=== PATIENT | male | born 1950 | race African-American/Black ===

== ENCOUNTER → 2017-01-04 | Outpatient (CLI) | payer MEDICARE ==
[~2017-01-04] MED LIST: /AMLO25TA NG; /FENT25PA TD; /FENT50PA TD; /HCTZ25TA PO; /ONDA4TA IV; /PANT40TA OR; /PANT40TA PO; /QUET10TA OR; /TAMS4CA OR; /TAMS4CA PO; ABIL10TA; ABILIFY; ACET50TA PO; ALLOPOW4 OR; AMLO10TA OR; AMLO10TA2 PO; AMLO5TAB OR; AMLO5TAB2 PO; AMOX500T PO; ATEN25TA; ATENPOW; AVAP300T PO; AVOD0.5C PO; Atarax; Atarax PO; BABY81CH; BUDE300T; CIPR500T89 PO; CLON0.5T PO; CLON1TAB PO; CLON3PA TOP; CLOP75TA2 PO; Cogentin PO; DESI100T PO; DICLOFENAC PO; ENAL20TA PO; ENAL5TA PO; FERR325T OR; GABA300C2 PO; GLUC500T PO; HALD5INJ2 IJ; HEPA50VL SC; HYDR20IN2 PO; HYDR25TA PO; HYDR50TA7 OR; HYDR50TA7 PO; Haldol PO; IMDU60TA PO; INSULANT SC; INSULIN; INSULIN LANTUS; INSULIN LANTUS SC; INVE6TAB3; ISOVUE-370 76% 100ML VIAL (Q9967) As Ordered ONE; KLON1TAB OR; KLON1TAB PO; LABE10TAB PO; LABE20TAB PO; LEVO50TA4 PO; LISINOPRIL/HCTZ; LISIPOW PO; LOPR50TA PO; LYRI75CA; MACR100C3 PO; MAGN500T2; MAGN500T2 OR; METF1000 PO; METH10TA2 PO; MIRT15TA3 PO; MULTTAB4 PO; NALO4SY IV; NEUR300C; NICO21DI4 TD; NITR2OI EXT; OXYCONTIN PO; PANT40TA2 PO; PERC10TA9 PO; PERC5TAB8 OR; PLAV75TA2 PO; PROAAER IN; PROTPAK PO; RISP1TAB3 PO; RISP2TAB12 OR; RISP4TAB33 PO; SERO200T PO; SERO400T PO; SERO400T3 PO; SOMA; SYNT50TA PO; TRAMADOL PO; TRAZ100T2 PO; TYLE325T5 PO; UROX10TA10 PO; VASO20TA PO; VITA500T OR; Vibramycin PO; [UNRECOGNIZED DRUG - CODE] PO; [UNRECOGNIZED DRUG - OTHER]; [UNRECOGNIZED DRUG - OTHER] GT; [UNRECOGNIZED DRUG - OTHER] PO; effexor xr PO; novolog insulin
--- NOTE | 2017-01-04 16:52 | REP ---
CT ANGIOGRAM ABDOMINAL AORTA AND BILATERAL LOWER EXTREMITIES: CT angiogram abdominal aorta and bilateral lower extremities are performed following the intravenous administration of 100 mL of Isovue-370. Sagittal, coronal and MIP reconstruction images are performed. Comparison is made with multiple prior exams. Visualized lung bases demonstrate fibrotic change. There is some bullous change in the left lower posterior medially. Liver, spleen, left adrenal, were unremarkable. Small right adrenal nodule is stable compared to prior studies. Pancrease demonstrates no mass. Patient has had a prior cholecystectomy. Prominent common bile duct is unchanged. There are small bilateral renal cysts. I see no adenopathy, free air or free fluid in the abdomen or pelvis. No pelvic mass is seen. Urinary bladder is grossly unremarkable. Moderate atherosclerotic plaquing is seen of the abdominal aorta once again without aneurysm dilatation. There is relatively moderate plaquing and narrowing at the origin of the celiac artery. Mild plaquing and narrowing is seen at the origin of the super-mesenteric and renal arteries without significant stenosis. There does appear to moderate narrowing at the origin of the inferior mesenteric artery. Right common iliac artery demonstrates moderate diffuse plaquing without significant stenosis. There does appear to be fairly high grade stenosis at the origin of the right internal iliac artery. There is moderate calcific plaque and narrowing, with moderate stenosis of the proximal right external iliac artery. Right common femoral artery demonstrate moderate stenosis with calcific plaque. There is high grade stenosis at the origin of the right profunda artery. There is a stent/graft at the origin of the right superficial femoral artery with patent internal flow. There is mild diffuse narrowing of the superficial femoral artery. There is moderate diffuse narrowing of the popliteal artery. There is severe stenosis of the proximal right anterior tibial artery which appears to occluded in the proximal third of the calf. There is reconstitution of that anterior tibial artery in the mid calf with the remaining distal portions stenotic and flow is seen in to the right foot. There is mild narrowing of the tibial peroneal trunk diffusely which narrows out as it approaches the ankle but this vessel does appear to traverse in to the right foot. The right posterior tibial artery is occluded proximally. Left common iliac artery demonstrates moderate diffuse plaquing without significant stenosis. There is high grade stenosis at the origin of the left internal iliac artery. The left external iliac artery demonstrates moderate diffuse plaquing and narrowing as does the common femoral artery. There is high grade stenosis at the origin of the left superficial femoral artery. There is mild stenosis at the origin of the left profunda. Graft/stent is seen in the mid to distal left superficial femoral artery with patent internal flow. There is moderate diffuse narrowing of the left popliteal artery with multifocal mild to moderate stenoses at that artery. Left anterior tibial artery appears occluded just distal to its origin with reconstitution in the mid calf, with this vessel traversing into the left foot. The left tibial peroneal trunk is mildly narrowed. The posterior tibial artery is occluded just distal to its origin. Left peroneal artery demonstrates mild narrowing proximally with a moderate degree of narrowing distally, although this vessel does appear to traverse into the left foot. IMPRESSION: Moderate atherosclerotic disease as discussed in detail above, throughout the abdominal aorta and bilateral lower extremities. Patent stent/graft at the origin of the right superficial femoral artery with two-vessel runoff into the right foot. There is high grade stenosis at the origin of the left superficial femoral artery with a patent stent/graft of the mid to distal left superficial femoral artery. There is two vessel runoff in to the left foot. There is mild to moderate multifocal stenoses throughout the left popliteal artery. Signed by Morgan Ryan MD 01/05/2017 11:33 A
== END ==
LOC: M RAD 11:09
PROVIDERS: ATTEND Surgery
DX: Z01.818 Encounter for other preprocedural examination (principal); I70.293 Other atherosclerosis of native arteries of extremities, bilateral legs; Z95.828 Presence of other vascular implants and grafts
CPT/HCPCS: 36415; 75635; 82565; 84520; Q9967

== ENCOUNTER → 2017-01-04 | Outpatient (CLI) | payer MEDICARE ==
[~2017-01-04] MED LIST changes: -ISOVUE-370 76% 100ML VIAL (Q9967) As Ordered ONE
[2017-01-04 12:08] LABS: BLOOD UREA NITROGEN 4 MG/DL (7-18); CREATININE FOR GFR 0.96 MG/DL (0.70-1.30); GLOMERULAR FILTRATION RATE > 60.0 (>49)
== END ==
LOC: M LAB 10:34
PROVIDERS: ATTEND Nurse Practitioner
DX: Z01.812 Encounter for preprocedural laboratory examination (principal)

== ENCOUNTER → 2017-01-28 | Outpatient (CLI) | payer MEDICARE ==
[2017-01-28 11:39] LABS: ALBUMIN 3.9 GM/DL (3.2-5.2); ALBUMIN/GLOBULIN RATIO 0.95 (1.00-1.93); ALKALINE PHOSPHATASE 77 U/L (45-117); ALT/SGPT 32 U/L (12-78); ANION GAP 9 MEQ/L (8-16); AST/SGOT 23 U/L (7-37); BILIRUBIN,TOTAL 0.5 MG/DL (0.2-1.0); BLOOD UREA NITROGEN 6 MG/DL (7-18); CALCIUM LEVEL 9.2 MG/DL (8.8-10.2); CARBON DIOXIDE LEVEL 23 MEQ/L (21-32); CHLORIDE LEVEL 108 MEQ/L (98-107); CHOLESTEROL LEVEL 120 MG/DL (<200); CREATININE FOR GFR 0.97 MG/DL (0.70-1.30); GLOMERULAR FILTRATION RATE > 60.0 (>49); GLUCOSE, FASTING 82 MG/DL (80-110); POTASSIUM SERUM 3.6 MEQ/L (3.5-5.1); SODIUM LEVEL 140 MEQ/L (136-145); TRIGLYCERIDES LEVEL 111 MG/DL (<150)
== END ==
LOC: M LAB 09:20
DX: E11.40 Type 2 diabetes mellitus with diabetic neuropathy, unspecified (principal); E78.00 Pure hypercholesterolemia, unspecified; I10 Essential (primary) hypertension; E03.8 Other specified hypothyroidism; N40.1 Benign prostatic hyperplasia with lower urinary tract symptoms

== ENCOUNTER → 2017-01-28 | Outpatient (CLI) | payer MEDICARE ==
--- NOTE | 2017-02-14 23:37 | ECWPNPC ---
PATIENT NAME: MARIO HDEZ : 1950 GENDER: MALE VISIT DATE: 01/28/2017 DISCHARGE DATE: 01/28/17 1311 VISIT LOCKED DATE TIME: PHYSICIAN: AMY LEES RESOURCE: AMY LEES REASON FOR APPOINTMENT 1. MULITPLE BODY PAIN HISTORY OF PRESENT ILLNESS NEW PATIENT CONSULT: WHEN DID YOUR PAIN FIRST START? . BRIEFLY DESCRIBE HOW YOUR PAIN STARTED? . HOW DOES YOUR PAIN CHANGE WITH TIME? . DOES YOUR PAIN AWAKEN YOU FROM SLEEP? . HOW MANY HOURS OF SLEEP DO YOU NORMALLY GET? . ANY DIAGNOSTIC TESTING? . FACILITY WHERE TESTS WERE DONE? ____. PAIN TREATMENT TREATMENT YES CANCER HAVE YOU EVER HAD ANY TYPE OF CANCER?YES NO. 66 YEAR OLD MALE PATIENT WITH HISTORY OF CHRONIC EXTREMITY AND BACK PAIN. PATIENT DESCRIBES THE PAIN ACHING, SHARP, TENDER, THROBBING, SHOOTING, AND HAVING IT ALL THE TIME WITH A PAIN SCORE OF 8/10. PATIENT STATES HIS PAIN STARTED IN 2007 AFTER HAVING SURGERY DUE TO BREAST CANCER, SINCE THEN THE PAIN HAS PERSISTENT ON THE RIGHT THORACIC AREA. CURRENTLY THE PATIENT IS USING METHADONE TO AID IN PAIN RELIEF AND REPORTS ITS BEING THE ONLY THING THAT HAS GIVEN HIM PAIN RELIEF. PATIENT STATES THAT WALKING, STANDING, AND LAYING DOWN INCREASES THE PAIN THE MOST. PATIENT DENIES UNEXPLAINABLE WEIGHT LOSS, FEVER, CHILLS, NEW CHANGES ON HIS URINARY OR BOWEL CONTROL. PAIN SCREENING: PATIENT HAS A COMPLAINT OF ACUTE OR CHRONIC PAIN :YES FALL RISK SCREENING: SCREENING :NO FALLS IN THE PAST YEAR HOWE INVENTORY: QUESTIONNAIRE ASSESSEDTBD SCORE VALUE CALCULATED TBD CURRENT MEDICATIONS TAKING SEROQUEL 200 400 MG. TABLET 1 TABLET ORAL AT BEDTIME TAKING METHADONE 10MG TAB 1TAB TID TAKING METFORMIN HCL 500MG TABLET 2TABS ORALLY Q A.M. TAKING HYDRALAZINE HCL 25 MG TABLET 1 TAB(S) ORALLY DAILY TAKING AMLODIPINE BESYLATE 10 MG TABLET 1 TABLET ORALLY ONCE A DAY TAKING LEVETIRACETAM 750 MG TABLET 1 TABLET ORALLY TWICE A DAY TAKING HIGH POTENCY IRON 27 MG TABLET 65 MG TAKEN ORALLY ONCE A DAY TAKING CENTRUM - TABLET ORALLY TAKING ATORVASTATIN CALCIUM 20 MG TABLET 1 TABLET ORALLY ONCE A DAY TAKING PANTOPRAZOLE SODIUM 40 MG TABLET DELAYED RELEASE 1 TABLET ORALLY ONCE A DAY TAKING QUETIAPINE FUMARATE 100 MG TABLET 1 TABLET ORALLY BID TAKING HYDROXYZINE HCL 25 MG TABLET 1 TABLET NEEDED ORALLY EVERY 8 HRS TAKING ADVAIR DISKUS 100-50 MCG/DOSE AEROSOL POWDER BREATH ACTIVATED 1 PUFF INHALATION TWICE A DAY UNKNOWN DESIPRAMINE HCL 100 MG TABLET 1 TABLET ORALLY ONCE A DAY UNKNOWN UROXATRAL 10 MG TABLET EXTENDED RELEASE 24 HOUR 1 TABLET IMMEDIATELY AFTER THE SAME MEAL ORALLY ONCE A DAY UNKNOWN GABAPENTIN 300 MG CAPSULE 2 CAPSULE ORALLY BID UNKNOWN ENALAPRIL MALEATE 20 MG TABLET 2 TABLET ORALLY DAILY UNKNOWN AMLODIPINE 5MG TABLET 1TAB DAILY ORAL DAILY UNKNOWN LANTUS SOLO STAR PEN NEEDLES - - DIRECTED SUBCUTANEOUS TWICE DAILY/ DX :250.00 UNKNOWN LANTUS SOLOSTAR 100 UNIT/ML SOLUTION 22 UNITS SUBCUTANEOUS TWICE DAILY/ DX : 250.00 UNKNOWN VIAGRA 100 MG TABLET 1 TABLET NEEDED ORALLY ONCE A DAY MEDICATION LIST REVIEWED AND RECONCILED WITH THE PATIENT PAST MEDICAL HISTORY PVD HYPERTENSION DIABETES COPD GENERALIZED ANXIETY /DEPRESSION ADHD ECHOCARDIOGRAM DONE ON 12/11/10 SHOWED NO SIGNIFICANT VALVULAR DISEASE LEFT VENTRICULAR SYSTOLIC FUNCTION IS NORMAL LEFT VENTRICULAR DIASTOLIC FUNCTION NORMAL CONCENTRIC LVH NUCLEAR STRESS TEST DONE WAS NORMAL EJECTION FRACTION 51% STUDY WAS NEGATIVE FOR ISCHEMIA THUS [facility] BY DR. MERINO CHRONIC HEPATITIS C GENOTYPE 1A BIOPSY SHOWED GRADE 1/4 INFLAMMATION AND FIBROSIS ONE TO TWO OVER FOUR DONE IN 2008 HBS AB POSITIVE HEPATITIS C VIRAL LOAD 2.4 MILLION AND F3 FIBROSURE 2011 LUNG CANCER MODERATELY DIFFERENTIATED ADENOCARCINOMA WITH NO METASTASIS PET SCAN NEGATIVE BPH - S/P GREENLGITH LASER ABLATION OF PROSTATE (01/10/13) ED POLYSUBSTANCE ABUSE. DEMENTIA ALLERGIES N.K.D.A. SURGICAL HISTORY VASCULAR SURGERY(STENT PLACEMENT LOWER EXTREMITY) 2010 HEMORRHOIDECTOMY CHOLECYSTECTOMY EYE SURGERY- LENS IMPLANT GREEN LIGHT LASER ABLATION OF PROSTATE 01/10/2013 LUNG RESECTION LEFT SIDE 2013 FAMILY HISTORY FATHER: 70 YRS, BRAIN TUMOR MOTHER: ALIVE, KIDNEY STONES, BRAIN ANEURYSM SIBLINGS: BROTHER 1 KIDNEY DISEASE SON(S): ALIVE PATERNAL UNCLE: PROSTATE CA 6 BROTHER(S) , 1 SISTER(S) - HEALTHY. 1 SON(S) - HEALTHY. MOTHER HAS HX OF KIDNEY STONES. PATERNAL UNCLE POSITIVE FOR PROSTATE CA. NEGATIVE FOR ANY OTHER UROLOGIC RELATED DISEASES. SOCIAL HISTORY GENERAL: TOBACCO USE ARE YOU A:CURRENT SMOKER ARE YOU INTERESTED IN QUITTING?THINKING ABOUT QUITTING COUNSELED THE PATIENT ON SMOKING CESSATION, EDUCATION [id number]/2017 PATIENT COUNSELED ON THE DANGERS OF TOBACCO USE AND URGED TO QUIT:01/28/2017 LUNG CANCER SCREENING SMOKING STATUS: PT HAS HISTORY OF LUNG CANCER CAFFEINE CAFFEINE USE?YES HOW OFTEN AND HOW MUCH? 2 CUPS DAILY OCCUPATION: RETIRED. DIET: NO CONCENTRATED SWEETS.. EXERCISE: WALKS. MARITAL STATUS: . OTHERS AT HOME: LIVING WITH PEOPLE NOW TRYING TO CHANGE THAT. PETS: NONE. YAZIDI YAZIDI NON DEMONINATIONAL LANGUAGE LANGUAGES SPOKEN:HEBREW EDUCATION LEVEL OF EDUCATION: YEARS OF COLLEGE LEARNING BARRIERS / SPECIAL NEEDS SPECIAL DEVICES?YES CANE IMMUNIZATION PROGRAM INFLUENZA VACCINE: HAD IN JANUARY PAIN CLINIC PFS, CLERGY, PUBLIC HEALTH REFERRALS CLERGY REFERRAL NEEDED?NO WAS THE PROVIDER NOTIFIED OF ANY PERTINENT INFO?NO PFS REFERRAL NEEDED?NO PUBLIC HEALTH REFERRAL NEEDED?NO PATIENT: ____. HOSPITALIZATION/MAJOR DIAGNOSTIC PROCEDURE SURGICAL RELATED DUE TO FALL AT HOME 10/06/12-10/08/12 IN PATIENT MENTAL HEALTH JUNE 2013 REVIEW OF SYSTEMS REVIEWED BY: PROVIDER: AMY LEES MD . CONSTITUTIONAL: ANY CHANGE IN YOUR MEDICAL CONDITION? NO . CHILLS NO . FEVER NO . INFECTION: DO YOU HAVE NEW INFECTIONS? NO . DO YOU HAVE HISTORY OF MRSA? NO . MUSCULOSKELETAL: ANY NEW PATTERNS OF PAIN OR NUMBNESS? YES BILATERAL LEGS . SYTEMIC LUPUS NO . GASTROENTEROLOGY: ANY NEW CHANGE IN BOWEL CONTROL? NO . BARRETTS ESOPHAGUS NO . CIRRHOSIS NO . HEPATITIS NO . LIVER FAILURE NO . ACID REFLUX NO . UNEXPLAINED WEIGHT LOSS NO . GENITOURINARY: ANY NEW CHANGE IN BLADDER CONTROL? NO . IS THERE A CHANCE YOU COULD BE ? NO . HEMATOLOGY/LYMPH: DO YOU TAKE ANY BLOOD THINNERS? (FOR EXAMPLE- COUMADIN, PLAVIX, AGGRENOX, PLATEL, PRADAXA, OR XARELTO) NO . WHEN WAS YOUR LAST DOSE? DATE: TIME: . LOW PLATELET COUNT NO . SICKLE CELL DISEASE YES . VON WILLIEBRANDS NO . FACTOR V LEIDEN NO . THALLASEMIA NO . ANEMIA NO . EASY BRUISING NO . NEUROLOGY: HAVE YOU FALLEN IN THE PAST 6 MONTHS? NO . ANY NEW EXTREMITY NUMBNESS OR WEAKNESS? NO . HEAD INJURY NO . DEMENTIA YES . CEREBRAL PALSY NO . MULTIPLE SCLEROSIS NO . DIZZINESS NO . HEADACHE NO . STROKES NO . VERTIGO NO . CARDIOLOGY: DO YOU HAVE A PACEMAKER OR DEFIBRILLATOR? NO . ANGINA NO . HEART ATTACK NO . HEART SURGERY NO . CONGESTIVE HEART FAILURE/FLUID OVERLOAD NO . CHEST PAIN NO . HIGH BLOOD PRESSURE ON MEDICATION(S) . IRREGULAR HEART BEAT NO . RESPIRATORY: HAVE YOU BEEN SICK IN THE PAST WEEK? NO . FEVER NO . FLU LIKE SYMPTOMS? NO . CPAP NO . BYPAP NO . ASTHMA NO . EMPHYSEMA NO . CHRONIC LUNG DISEASES YES COPD ON ADVAIR DISKUS . SHORTNESS OF BREATH ON EXERTION NO . DO YOU USE ANY TYPE OF TOBACCO (SMOKE, SMOKELESS, CHEW)? YES CURRENT SMOKER 5 A DAY . COUGH NO . SNORING NO . INTEGUMENTARY: DO YOU HAVE ANY RASHES OR OPEN SORES? NO . ALLERGIC/IMMUNO: ARE YOU ALLERGIC TO SHELLFISH OR IV DYE? NO . ANY NEW ALLERGIES? NO . PSYCHIATRIC: DO YOU HAVE THOUGHTS OF HURTING YOURSELF OR SOMEONE ELSE? NO . ARE YOU ABUSED, NEGLECTED, OR IN AN UNSAFE ENVIRONMENT? PT HAS DX OF SCHIZOPHRENIA, DOING WELL, CURRENTLY LIVING SITUATION IS NOT "GOOD" HE IS WAITING TO HEAR BACK IN REGARDS TO HOUSING. ALSO THIS NURSE GAVE HIM INFO FOR MENTAL HEALTH OUT PT WALK IN INFO. PT VERY RECEPTABLE AND PLEASANT . ENDOCRINOLOGY: ARE YOU DIABETIC? YES . THYROID DISORDER NO . OTHER: DO YOU NEED ANY PRESCRIPTIONS? NO . IF YES, PLEASE LIST: ____ . ANY NEW PROBLEMS WITH YOUR MEDICATIONS? NO . WHEN DID YOU LAST EAT? ____ . WHEN DID YOU LAST DRINK? ____ . WHAT DID YOU LAST DRINK? ____ . NAME OF PERSON DRIVING YOU HOME? ____ . DO YOU HAVE ANY OTHER QUESTIONS OR CONCERNS NO . VITAL SIGNS WT 158.8 LBS, HT 73 IN, BMI 20.95 INDEX, BP 149/86 MM HG, HR 88 /MIN, RR 18 /MIN, TEMP 96.9 F, OXYGEN SAT % 98%, NA INITIALS TL 1127, REVIEWED BY: KG. EXAMINATION : PATIENT IS ALERT O X 3 AND COOPERATIVE. ANTALGIC GAIT. RIGHT ARM AND HAND X RAY CONSULTANT IS WEAKER THEN THE LEFT. LEFT LEG IS WEAKER THEN THE RIGHT AT EXTENSION AND FLEXION. TENDERNESS OVER THE SCAR IN THERE STERNUM AREA. MRI OF THE CERVICAL SPINE DONE ON 04/14/15 SHOWS DISC OSTEOPHYTE COMPLEX AT C3-C4, C4-C5, C5-C6, AND C6-C7 AND CANAL STENOSIS. , LUNGS CLEAR, TO AUSCULTATION. HEART: NO MURMURS OR GALLOPS; FACIAL CRANIAL NERVES ARE GROSSLY NORMAL. GOOD SYMMETRY OF FACIAL MUSCLE MOVEMENT. NORMAL VISUAL CEDEÑO. ABDOMINAL SOFT AND DEPRESSIBLE. ASSESSMENTS OTHER MONONEUROPATHY - G58.8 (PRIMARY) MULTIPLE BODY PAIN. TREATMENT OTHER MONONEUROPATHY NOTES: WE DISCUSSED SEVERAL ISSUES WITH MR. HDEZ'S PAIN MANAGEMENT CASE. AT THIS TIME THE PATIENT WILL USE METHADONE 10 MG MDD 4 FOR THE SOMATIC PAIN HE IS HAVING. PATIENT HAS USED THIS MEDICATION IN THE PAST AND STATES THAT HE FEELS SAFE USING THE MEDICATION. PATIENT DENIES ABUSE OF ANY MEDICATION, DENIES USE OF ILLEGAL SUBSTACNES, AND STATES THAT HE IS ONLY USING THE MEDICATION FOR PAIN MANAGEMENT. ISTOP REVIEWED [id number]. I WOULD LIKE THE PATIENT TO RECEIVE AN EKG DUE TO THE METHADONE USAGE. PATIENT WILL SIGN A NARCOTIC AGREEMENT TODAY. PATIENT WILL RETURN IN 3 WEEKS TO REVIEW THE EKG. INSTRUCTIONS WERE GIVEN, QUESTIONS WERE ANSWERED, PATIENT REPORTS UNDERSTANDING AND AGREES WITH THE PLAN. I, LAURA FREIRE, DOCUMENTED THE ABOVE INFORMATION ACTING A SCRIBE FOR DR. LEES. I HAVE REVIEWED THE ABOVE DOCUMENT, WRITTEN BY LAURA BOSWELL AND I VERIFY THAT IT IS ACCURATE. DEAR DR. IVY :THANK YOU FOR YOUR KIND REFERRAL OF MR. HDEZ. IF YOU WANT TO DISCUSS HER/HIS CASE WITH ME PLEASE CALL ME AT THE PAIN CENTER AT [phone]. SINCERELY,AMY LEES, [facility]. OTHERS REFILL METHADONE TAB, 10MG, 1TAB, PO, QID FOR PAIN MDD4, 30 DAY(S), 120, REFILLS 0 START METHADONE HCL TABLET, 10 MG, 1 TABLET, ORALLY FOR PAIN, FOUR TIMES DAILY MDD4, 30 DAY(S), 120, REFILLS 0 PROCEDURE CODES FA211 ESTABILISHED PATIENT [facility] FACILITY CHARGE [id number] DOC MEDS VERIFIED W/PT OR RE [id number] PAIN ASSESS POS TOOL F/U PLAN DOC DISPOSITION & COMMUNICATION FOLLOW UP 3 WEEKS ELECTRONICALLY SIGNED BY AMY LEES MD ON 02/14/2017 AT 10:55 PM EST DISCLAIMER : THIS IS A VISIT SUMMARY EXTRACTED FROM THE [employer] CHART. IT IS NOT A COPY OF THE [employer] PROGRESS NOTE. MTDD
== END ==
LOC: M PAIN 11:15
PROVIDERS: ATTEND Anesthesiology
DX: G58.8 Other specified mononeuropathies (principal); G89.29 Other chronic pain; E11.9 Type 2 diabetes mellitus without complications; I10 Essential (primary) hypertension; F20.9 Schizophrenia, unspecified; F17.210 Nicotine dependence, cigarettes, uncomplicated; Z85.3 Personal history of malignant neoplasm of breast; Z79.4 Long term (current) use of insulin; Z79.899 Other long term (current) drug therapy; Z79.891 Long term (current) use of opiate analgesic

== ENCOUNTER → 2017-01-28 | Outpatient (CLI) | payer MEDICARE ==
[2017-01-28 10:39] LABS: BASO # 0.1 10^3/uL (0.0-0.2); BASO % 0.5 % (0.0-1.0); EOS # 0.1 10^3/uL (0.0-0.50); EOS % 1.1 % (0.0-3.0); IMMATURE GRANULOCYTE % 0.2 % (0-0); LYMPH % 56.8 % (24.0-44.0); MEAN CORPUSCULAR HEMOGLOBIN 31.5 pg (27.0-33.0); MEAN CORPUSCULAR VOLUME 95.4 fl (80.0-96.0); MONO # 0.8 10^3/uL (0.0-0.8); NEUTROPHILS # 3.4 10^3/uL (1.8-7.7); NEUTROPHILS % 33.4 % (36.0-66.0); PLATELET COUNT, AUTOMATED 360 10^3/uL (150-450); RED CELL DISTRIBUTION WIDTH 13.1 % (11.5-14.5)
[2017-01-28 10:53] LABS: LYMPH # 5.7 10^3/uL (1.5-4.5)
[2017-01-28 11:18] LABS: ALBUMIN 4.2 GM/DL (3.2-5.2); ALBUMIN/GLOBULIN RATIO 1.14 (1.00-1.93); ALKALINE PHOSPHATASE 79 U/L (45-117); ALT/SGPT 33 U/L (12-78); ANION GAP 11 MEQ/L (8-16); AST/SGOT 20 U/L (7-37); BILIRUBIN,TOTAL 0.4 MG/DL (0.2-1.0); BLOOD UREA NITROGEN 5 MG/DL (7-18); CALCIUM LEVEL 8.9 MG/DL (8.8-10.2); CARBON DIOXIDE LEVEL 22 MEQ/L (21-32); CHLORIDE LEVEL 109 MEQ/L (98-107); CHOLESTEROL LEVEL 121 MG/DL (<200); CREATININE FOR GFR 1.03 MG/DL (0.70-1.30); FERRITIN 61 NG/ML (26-388); GLOMERULAR FILTRATION RATE > 60.0 (>49); GLUCOSE, FASTING 85 MG/DL (80-110); POTASSIUM SERUM 3.6 MEQ/L (3.5-5.1); SODIUM LEVEL 142 MEQ/L (136-145); T UPTAKE 36 % (33-40); THYROXINE (T4) 11.4 UG/DL (4.5-12.0); TOTAL PROTEIN 7.9 GM/DL (6.4-8.2); TRIGLYCERIDES LEVEL 113 MG/DL (<150)
== END ==
LOC: M LAB 09:27
PROVIDERS: ATTEND Physician Assistant Medical
DX: D64.9 Anemia, unspecified (principal); E11.9 Type 2 diabetes mellitus without complications

== ENCOUNTER → 2017-02-01 | Outpatient (REF) | payer MEDICARE | LOC: M SFHCPLAZ 10:12 | PROVIDERS: ATTEND Internal Medicine Infectious Disease | DX: B18.2 Chronic viral hepatitis C (principal); Z53.8 Procedure and treatment not carried out for other reasons ==

== ENCOUNTER → 2017-02-17 | Outpatient (REF) | payer MEDICARE ==
[2017-02-17 15:26] LABS: INR 0.93
[2017-02-18 09:17] LABS: ALPHA FETOPROTEIN TUMOR QUANT 2.6 NG/ML (<8.1)
[2017-02-23 08:09] LABS: ALPHA 2-MACROGLOBULIN 370 mg/dL (110-276); ALT 43 IU/L (0-55); APOLIPOPROTEIN A-1 215 mg/dL (101-178); FIBROSIS SCORE 0.62 (0.00-0.21); GGT 191 IU/L (0-65); HAPTOGLOBIN 54 mg/dL (34-200); NECROINFLAM SCORE 0.34 (0.00-0.17); NECROINFLAMM GRADE A1-Minimal activity (.); TOTAL BILIRUBIN 0.3 mg/dL (0.0-1.2)
== END ==
LOC: M SFHCPLAZ 13:31
DX: B18.2 Chronic viral hepatitis C (principal)
CPT/HCPCS: 84460

== ENCOUNTER → 2017-03-08 | Outpatient (CLI) | payer MEDICARE, MEDICAID | LOC: M RAD 08:07 | DX: B18.2 Chronic viral hepatitis C (principal) | CPT/HCPCS: 76705 ==

== ENCOUNTER → 2017-04-05 | Outpatient (CLI) | payer MEDICARE, MEDICAID | LOC: M PAIN 15:30 | DX: G89.29 Other chronic pain (principal); M54.5 Low back pain; M79.1 Myalgia; I10 Essential (primary) hypertension; E11.9 Type 2 diabetes mellitus without complications; J44.9 Chronic obstructive pulmonary disease, unspecified; F41.1 Generalized anxiety disorder; F32.9 Major depressive disorder, single episode, unspecified; B18.2 Chronic viral hepatitis C; F03.90 Unspecified dementia, unspecified severity, without behavioral disturbance, psychotic disturbance, mood disturbance, and anxiety; F17.210 Nicotine dependence, cigarettes, uncomplicated; F11.20 Opioid dependence, uncomplicated; Z79.84 Long term (current) use of oral hypoglycemic drugs; Z79.899 Other long term (current) drug therapy; Z85.118 Personal history of other malignant neoplasm of bronchus and lung | CPT/HCPCS: G0463 ==

== ENCOUNTER → 2017-04-26 | Outpatient (REF) | payer MEDICARE, MEDICAID ==
[2017-04-26 15:56] LABS: BASO % 0.6 % (0.0-1.0); EOS # 0.1 10^3/uL (0.0-0.50); EOS % 1.3 % (0.0-3.0); HEMOGLOBIN 12.6 g/dl (14.0-18.0); IMMATURE GRANULOCYTE % 0.3 % (0-3.0); LYMPH # 4.1 10^3/uL (1.5-4.5); LYMPH % 60.2 % (24.0-44.0); MEAN CORPUSCULAR HEMOGLOBIN 30.7 pg (27.0-33.0); MEAN CORPUSCULAR HGB CONC 33.2 g/dl (32.0-36.5); MEAN CORPUSCULAR VOLUME 92.5 fl (80.0-96.0); MONO # 0.6 10^3/uL (0.0-0.8); MONO % 8.6 % (0.0-5.0); PLATELET COUNT, AUTOMATED 341 10^3/uL (150-450); RED BLOOD COUNT 4.11 10^6/uL (4.30-6.10); RED CELL DISTRIBUTION WIDTH 12.5 % (11.5-14.5); WHITE BLOOD COUNT 6.9 10^3/uL (4.0-10.0)
[2017-04-26 16:06] LABS: ALBUMIN 3.6 GM/DL (3.2-5.2); ALBUMIN/GLOBULIN RATIO 0.92 (1.00-1.93); ALKALINE PHOSPHATASE 83 U/L (45-117); ALT/SGPT 23 U/L (12-78); ANION GAP 7 MEQ/L (8-16); AST/SGOT 20 U/L (7-37); BILIRUBIN,TOTAL 0.3 MG/DL (0.2-1.0); BLOOD UREA NITROGEN 11 MG/DL (7-18); CALCIUM LEVEL 9.1 MG/DL (8.8-10.2); CARBON DIOXIDE LEVEL 24 MEQ/L (21-32); CHLORIDE LEVEL 108 MEQ/L (98-107); CREATININE FOR GFR 0.83 MG/DL (0.70-1.30); GLOMERULAR FILTRATION RATE > 60.0 (>49); GLUCOSE, FASTING 82 MG/DL (70-100); POTASSIUM SERUM 4.5 MEQ/L (3.5-5.1); SODIUM LEVEL 139 MEQ/L (136-145); TOTAL PROTEIN 7.5 GM/DL (6.4-8.2)
== END ==
LOC: M SFHCPLAZ 13:33
DX: B18.2 Chronic viral hepatitis C (principal)
CPT/HCPCS: 80053

== ENCOUNTER → 2017-04-27 | Outpatient (CLI) | payer MEDICARE, MEDICAID | LOC: M PAIN 11:00 | DX: G89.29 Other chronic pain (principal); M79.1 Myalgia; I73.9 Peripheral vascular disease, unspecified; I10 Essential (primary) hypertension; E11.9 Type 2 diabetes mellitus without complications; J44.9 Chronic obstructive pulmonary disease, unspecified; F41.1 Generalized anxiety disorder; F32.9 Major depressive disorder, single episode, unspecified; N40.0 Benign prostatic hyperplasia without lower urinary tract symptoms; F03.90 Unspecified dementia, unspecified severity, without behavioral disturbance, psychotic disturbance, mood disturbance, and anxiety; F17.210 Nicotine dependence, cigarettes, uncomplicated; Z79.84 Long term (current) use of oral hypoglycemic drugs; Z79.899 Other long term (current) drug therapy | CPT/HCPCS: G0463 ==

== ENCOUNTER → 2017-05-20 | Outpatient (CLI) | payer MEDICARE, MEDICAID | LOC: M EKG 14:09 | DX: Z79.899 Other long term (current) drug therapy (principal) | CPT/HCPCS: 93005 ==

== ENCOUNTER → 2017-05-20 | Outpatient (CLI) | payer MEDICARE, MEDICAID | LOC: M PAIN 13:00 | DX: M79.1 Myalgia (principal); R07.9 Chest pain, unspecified; M54.14 Radiculopathy, thoracic region; I10 Essential (primary) hypertension; E11.51 Type 2 diabetes mellitus with diabetic peripheral angiopathy without gangrene; F17.210 Nicotine dependence, cigarettes, uncomplicated; I73.9 Peripheral vascular disease, unspecified; B18.2 Chronic viral hepatitis C; Z79.899 Other long term (current) drug therapy; Z79.84 Long term (current) use of oral hypoglycemic drugs; Z85.3 Personal history of malignant neoplasm of breast; Z85.118 Personal history of other malignant neoplasm of bronchus and lung; Z95.828 Presence of other vascular implants and grafts | CPT/HCPCS: 93005; G0463 ==